=== PATIENT | female | born 1975 | race Caucasian/White ===

== ENCOUNTER 2017-04-29 16:03 | Observation (INO) ==
[2017-04-29] MEDS ORDERED: HYDROmorphone 2 MG/1 ML VIAL IV STA (17:46)
[2017-04-29] MEDS ORDERED: ONDANSETRON 4 MG/2 ML VIAL IV STA ×2 (17:47→19:36)
[2017-04-29] MEDS ORDERED: METOCLOPRAMIDE 10 MG/2 ML VIAL IV STA (17:47)
[2017-04-29] MEDS ORDERED: HYDROmorphone 2 MG/1 ML VIAL ONE (17:51)
[2017-04-29] MEDS ORDERED: METOCLOPRAMIDE 10 MG/2 ML VIAL ONE (17:51)
[2017-04-29] MEDS ORDERED: ONDANSETRON 4 MG/2 ML VIAL ONE ×2 (17:51→19:37)
--- NOTE | 2017-04-29 17:52 | Emergency Department Note ---
Arrival <JuneSimon W - Last Filed: 04/29/17 19:11> - Arrival ED Nursing Triage Note: pt ambulatory to triage with c/o having migraine headache with nausea/ vomiting. pt states onset thursday. pt states she has been here x 2 to ER since thursday. just left ed this am around 0400 and is not any better. Mode of Arrival: Ambulatory <John Hyman - Last Filed: 04/30/17 16:48> - Arrival Chief Complaint: Headache Stated Complaint: migrsines and vomiting Time Seen by Provider: 04/29/17 17:34 - History of Present Illness HPI Narrative: 41-year-old white female presents the ER with complaint of headache since Thursday morning. This is the patient's third visit to the ER with the same complaint in 24 hours. Patient has received Dilaudid, Zofran, and Reglan on a previous visit with relief. However, when she gets home the nausea and vomiting returns and she is unable to hold down p.o. medicine. She called Dr. Coughlin and he prescribed Phenergan suppository and p.o. Demerol. Patient reports she was unable to take Demerol due to nausea and vomiting. Patient reports the pain was right suborbital and at times occipital. She reports that the onset of pain she had a visual aura. (John Hyman) Allergies/Adverse Reactions: Allergies Allergy/AdvReac Type Severity Reaction Status Date / Time No Known Allergies Allergy Verified 04/29/17 16:13 Home Medications: Home Medications Medication Instructions Recorded Confirmed Type ALPRAZolam [Xanax] 0.25 mg PO BEDTIME 10/31/14 04/30/17 History Omeprazole [Prilosec] 20 mg PO BID 10/31/14 04/30/17 History Amitriptyline [Elavil] 30 mg PO DAILY 12/12/16 04/30/17 History Diclofenac Potassium Tab [Cataflam] 50 mg PO ONCE PRN 12/12/16 04/29/17 History Docusate Sodium [Colace] 200 mg PO DAILY 12/12/16 04/30/17 History Lysine 500 mg PO DAILY 12/12/16 04/30/17 History Metoclopramide Tab [Reglan Tab] 10 mg PO DAILY 12/12/16 04/30/17 History Metoprolol Succinate Xl [Toprol Xl] 50 mg PO BID 12/12/16 04/30/17 History Multivit-Min/FA/Lycopen/Lutein 1 each PO DAILY 12/12/16 04/30/17 History [Centrum Silver Tablet] [place]-3/Dha/Epa/Fish Oil [Fish Oil 3 each PO DAILY 12/12/16 04/30/17 History 1,000 mg Softgel] Rizatriptan Benzoate [Maxalt] 10 mg PO ONCE PRN 12/12/16 04/29/17 History Bethanechol Chloride [Urecholine] 50 mg PO DAILY 04/29/17 04/30/17 History Naratriptan HCl [Amerge] 2.5 mg PO DIRECTED PRN 04/29/17 04/30/17 History Review of System - Review of System 12 point system: reviewed and no additional remarkable complaints except as stated - Review of System Constitutional: Present: as per HPI <John Hyman - Last Filed: 04/30/17 16:48> Medical,Surgical,& Family Hx - Medical History Neurology: History of: Migraine No history of: Seizures HEENT: History of: HEENT Problems (sinuses) Endocrine: No history of: Thyroid Disorder Respiratory: History of: Bronchitis, Pneumonia (hospitalized one week ago with right lower lobe pneumonia and sinusitis.) Gastrointestinal: History of: GERD, GI Problems (gastroparesis) - Surgical History Thoracic Surgeries: Patient denies;: Organ Transplant, Lobectomy Neurologic Surgeries: Patient denies: Neurologic Surgery HEENT Surgeries: Surgical HX of: Tonsilectomy & Adenoidectomy (removed) Patient denies: Eye Surgery, Thyroid Surgery Abdominal Surgeries: Surgical HX of: Abdominal Surgery, Cholecystectomy Reproductive Surgeries: Surgical HX of;: Section Patient denies;: Genitourinary Surgery, Gynecologic Surgery - Family History Family History: Reports;: Family Diabetes (mom), Family Hypertension (mom and dad) - Social History Smoking Status: Never smoker Frequency of Alcohol Use: None Type of Drug Use: None <John Hyman - Last Filed: 04/30/17 16:48> Exam <Simon Watkins - Last Filed: 04/29/17 19:11> <John Hyman - Last Filed: 04/30/17 16:48> Physical Examination: - General General appearance: [alert, in no apparent distress] - Head Head exam: [atraumatic, normocephalic, normal inspection] - Eye Eye exam: [normal appearance, PERRL, EOMI] - ENT ENT exam: [normal exam, mucous membranes moist] - Neck Neck exam: [normal inspection, full ROM, trachea midline] - Chest Chest inspection: [normal inspection, symmetric chest wall rise] - Respiratory Respiratory exam: [normal lung sounds bilaterally, respirations even and unlabored] - Cardiovascular Cardiovascular exam: [regular rate, normal rhythm, normal heart sounds] - Abdominal Exam Abdominal exam: [soft without tenderness, normal bowel sounds] - Extremities Exam Extremities exam: [normal inspection, full ROM, normal capillary refill] - Back Exam Back exam: [normal inspection, full ROM] - Neurological Exam Neurological exam: [alert, oriented X3, CN II-XII intact, equal nca certified concierge strength bilaterally, negative pronator drift] - Skin Skin exam: [warm, dry, intact, normal color] (John Hyman) Vital Signs: Vital Signs Temperature 98.9 F 04/30/17 12:00 Pulse Rate 94 H 04/30/17 12:00 Respiratory Rate 18 04/30/17 12:00 Blood Pressure 144/85 04/30/17 12:00 O2 Sat by Pulse Oximetry 96 04/30/17 12:00 Course <Simon Watkins - Last Filed: 04/29/17 19:11> <John Hyman - Last Filed: 04/30/17 16:48> Course Narrative: 1745: Plan is to evaluate labs and consider admission for intractable vomiting and pain. 1800: Patient care was assumed by Dr. Watkins. (John Hyman) - Reevaluation(s) Reevaluation #1: Discussed with patient the fact that we will admit for intractable nausea and vomiting but she must follow-up with the migraine clinic in [place]. (Simon Watkins) - Consultations Consultation #1: Discussed with the hospitalist service who will admit for further evaluation treatment. (Simon Watkins) Results - Labs CBC & BMP: 04/29/17 17:52 04/29/17 17:52 - Diagnostic Findings Procedure: CT Abdomen and Pelvis: image reviewed by me, report reviewed by me ( Fatty liver otherwise unremarkable) <Simon Watkins - Last Filed: 04/29/17 19:11> - Labs CBC & BMP: 04/30/17 07:45 04/30/17 07:45 <John Hyman - Last Filed: 04/30/17 16:48> - Labs Labs: I reviewed the lab and noted the elevated white blood cell count and diffuse abnormalities of LFTs (Simon Watkins) Disposition Case discussed with: patient, patient's family Time of Disposition: 19:13 <Simon Watkins - Last Filed: 04/29/17 19:11> <John Hyman - Last Filed: 04/30/17 16:48> Clinical Impression: Intractable nausea and vomiting, Recurrent migraines Disposition: Still a Patient Condition: Stable
[2017-04-29] MEDS ORDERED: SODIUM CHLORIDE 0.9% 500 ML IV STA (18:06)
[2017-04-29] MEDS ORDERED: KETOROLAC 30 MG/1 ML VIAL ONE (18:12)
[2017-04-29 18:13] LABS: Basophils # 0.1 10*3/uL (0.0-0.2); Basophils % 0.3 % (0.0-0.8); Eosinophils % 0.1 % (0.00-10.9); Hematocrit 44.3 VOL% (35.7-47.0); Hemoglobin 15.5 GM/DL (12.0-16.0); Immature Granulocytes % 0.6 %; Immature Granulocytes Absolute 0.11 #; Lymphocytes # 2.4 10*3/uL (1.4-4.0); Mean Corpuscular Hemoglobin 32 PG (27-34); Mean Corpuscular Volume 92.3 FL (87-102); Mean Platelet Volume 9.3 FL (9.6-12.0); Monocytes % 5.6 % (1.7-12.7); Neutrophils # 14.7 10*3/uL (1.4-7.4); Neutrophils % 80.4 % (38.7-73.9); Platelet Count 388 T/CUMM (130-400); Red Cell Distribution Width 12.5 % (9.3-17.3); White Blood Count 18.3 T/CUMM (4-12)
[2017-04-29] MEDS ORDERED: KETOROLAC 30 MG/1 ML VIAL IV STA (18:14)
[2017-04-29 18:39] LABS: Albumin 4.7 G/DL (3.4-5.0); Bilirubin,Total 0.8 MG/DL (0.2-1.0); Calcium 10.2 MG/DL (8.5-10.1); Osmolality,Calculated 271.1 MOS/KG (273-304); Potassium 3.6 MMOL/L (3.5-5.1)
--- NOTE | 2017-04-29 19:04 | CT Report ---
CT of the abdomen and pelvis with intravenous contrast. No oral contrast was administered. Axial images were obtained with sagittal and coronal 2-D reconstructions. Indication: Intractable nausea. Comparison: Noncontrasted study from August 05, 1999 The left lung bases clear. Calcified lymph nodes are seen within the left inferior hilum. There are linear areas of atelectasis or scarring at the left lung base. There is elevation of the left hemidiaphragm. The liver is enlarged with a length of 22 cm. There is very severe fatty infiltration of the liver. The gallbladder has been removed. No focal liver lesions are identified. There is no intrahepatic biliary ductal dilatation. The spleen size is normal. The spleen contains multiple granulomas. No adrenal enlargement. The pancreas presents a normal appearance. The abdominal aorta is of normal caliber. There is a 5 mm cyst at the midpole of the right kidney. The urinary bladder presents a normal appearance. The uterus presents a normal appearance. There is a 1.2 cm cyst on the left ovary. The gastric contour is grossly normal. The loops of small intestine are not dilated. No small intestinal wall thickening. The terminal ileum and appendix present a normal appearance. The colon is not dilated. There is no colonic wall thickening. No free air or free fluid is present within the peritoneal cavity. Osseous structures are unremarkable. Impression: 1. Atelectasis at the right lung base with scarring. Interval worsening compared to a chest CT from March 03, 2017. 2. Enlarged severely fatty liver. The CT exam was performed using one or more of the following dose reduction techniques: Automated exposure control, adjustment of the mA and/or kV according to patient size, or use of iterative reconstruction technique. PROCEDURE INTERPRETED AT [facility] DEPARTMENT OF RADIOLOGY Final Report Signed by: Dr. Sierra Smith
--- NOTE | 2017-04-29 19:40 | Hospitalist History & Physical ---
<Sabine Lopez - Last Filed: 04/29/17 19:58> Assessment and Plan - Time spent with patient Time spent with patient: Greater than 30 minutes (1) Migraine Status: Acute Assessment and plan: Neurologically intact Pain and nausea medications as needed Neurology consultation Sleep center consultation Current Visit: No (2) Elevated liver enzymes Status: Acute Assessment and plan: CT abd showed fatty liver Pending lab work Current Visit: Yes (3) Hyperglycemia Status: Acute Assessment and plan: Glucose 158 Hbg A1c 7.1 SSI with accuchecks 1800 shalonda ADA Current Visit: Yes (4) Hypertension Status: Acute Assessment and plan: Continue home medications Current Visit: Yes History of Present Illness History of present illness: Called to the ER for Ms. Perez who is a 41 year old female that presents tonight with an intractable migraine. Patient has been seen here three times and has received various medications and discharged home. The headache started on Thursday morning approximately 3AM. The pain woke her up from sleep. She has continued to have multiple episodes of nausea and vomiting. A CT head was performed yesterday and was negative. She has experienced an aura that includes nausea, ptosis, visual changes, and pain behind the affected eye. She has a history of migraines and sees a migraine clinic in [place] but has not reached out to them. She has a migraine plan with medications and has implemented it but has not received any relief. She states the most relief she has gotten was with the combination of Dilaudid, Reglan, Zofran, Imitrex, and Toradol PRN. She was concerned about the Dilaudid making her more nauseated due to she is narcotic naive. A CT of abd was performed which revealed a fatty liver. Her LFT' s are elevated but she denies any abdominal pain or change in stools. WBC increased from 13 to 18. She denies any chest pain, shortness of breath, palpitations, dizziness, coughing, melena, hematemsis, fatty or foul smelling stools, dysuria, or fevers. Additional history includes HTN, gastroparesis, renal calculi, hemorroidectomy, , cholecystectomy, and tonsillectomy. Her PCP is Dr. Coughlin. She will be admitted under hospital medicine service, pain and nausea medications PRN, blood cultures pending, repeat lab work, neurology consultation, and sleep center consultation. A CT of sinuses are pending. Home medications were reconciled as appropriate. Patient is a full code. Home Medications Medication Instructions Recorded Confirmed Type ALPRAZolam [Xanax] 0.25 mg PO BEDTIME 10/31/14 04/30/17 History Omeprazole [Prilosec] 20 mg PO BID 10/31/14 04/30/17 History Amitriptyline [Elavil] 30 mg PO DAILY 12/12/16 04/30/17 History Diclofenac Potassium Tab [Cataflam] 50 mg PO ONCE PRN 12/12/16 04/29/17 History Docusate Sodium [Colace] 200 mg PO DAILY 12/12/16 04/30/17 History Lysine 500 mg PO DAILY 12/12/16 04/30/17 History Metoclopramide Tab [Reglan Tab] 10 mg PO DAILY 12/12/16 04/30/17 History Metoprolol Succinate Xl [Toprol Xl] 50 mg PO BID 12/12/16 04/30/17 History Multivit-Min/FA/Lycopen/Lutein 1 each PO DAILY 12/12/16 04/30/17 History [Centrum Silver Tablet] [place]-3/Dha/Epa/Fish Oil [Fish Oil 3 each PO DAILY 12/12/16 04/30/17 History 1,000 mg Softgel] Rizatriptan Benzoate [Maxalt] 10 mg PO ONCE PRN 12/12/16 04/29/17 History Bethanechol Chloride [Urecholine] 50 mg PO DAILY 04/29/17 04/30/17 History Naratriptan HCl [Amerge] 2.5 mg PO DIRECTED PRN 04/29/17 04/30/17 History Allergies Allergy/AdvReac Type Severity Reaction Status Date / Time No Known Allergies Allergy Verified 04/29/17 16:13 Medical,Surgical,& Family Hx - Medical History Cardio: History of: Hypertension No history of: CHF, CAD, VA Psychological: History of: Anxiety Disorders No history of: Behavior Problems, Bipolar Disorder, Psychiatric/Substance Abuse Tx Neurology: No history of: Cerebrovascular Accident, TIA Genitourinary: History of: Kidney Stones Gastrointestinal: History of: GI Problems Musculoskeletal: No history of: Musculoskeletal Problems Hematology: No history of: Blood Disorders - Surgical History HEENT Surgeries: Surgical HX of: Tonsilectomy & Adenoidectomy - Family History Family History: Reports;: Family Cancer (paternal grandmother, maternal grandmother), Family Diabetes (mom, maternal grandparents, paternal grandmother) , Family Heart Disease (maternal grandmother, paternal grandfather), Family Hypertension - Social History Marital Status: Lives With:: Spouse - Constitutional Constitutional: Present: anorexia, fatigue, weakness. Absent: chills, lethargy , night sweats - EENT Eyes: Present: other (ptosis, pain behind affected eye) Nose, mouth and throat: Present: headache(s). Absent: sinus pressure, vertigo - Cardiovascular Cardiovascular: Absent: chest pain at rest, chest pain with activity, dyspnea, edema, orthopnea, palpitations - Respiratory Respiratory: Absent: cough, dyspnea - Gastrointestinal Gastrointestinal: Absent: change in bowel habits, diarrhea - Genitourinary Genitourinary: Absent: difficulty urinating, dysuria, flank pain - Musculoskeletal Musculoskeletal: Absent: muscle weakness - Psychiatric Psychiatric: Present: anxiety. Absent: depression - Endocrine Endocrine: Absent: cold intolerance, heat intolerance - Hematologic/Lymphatic Hematologic/Lymphatic: Absent: easy bleeding, easy bruising Exam - Constitutional Vitals: Period Temp Pulse Resp BP Sys/Mahmood Pulse Ox Last 24 Hr 98.9 F-98.9 F 98-114 17-20 134-146/82-92 95-98 - Skin Skin exam: Present: dry, intact Results - Labs CBC & BMP: 04/29/17 17:52 04/29/17 17:52 <White,Halie R - Last Filed: 04/30/17 17:08> Assessment and Plan (1) Migraine Status: Acute Assessment and plan: demerol, thorazine, toradol, phenergan, consult Dr Duggan, screen for sleep apnea Current Visit: No (2) Hyperglycemia Status: Acute Assessment and plan: hgb A1c Current Visit: Yes (3) Hypertension Status: Acute Assessment and plan: cont metoprolol Current Visit: Yes (4) Gastroparesis Problem details: Patient reports clinical improvement of using Reglan and Urecholine combination treatment for the past 2-3 years. Patient is convinced that her pharyngeal irritation is related to GERD and early ulcer formation. She is reminded of anti-reflux diet and behavior precautions. Add PPI therapy. Status: Chronic Assessment and plan: hold reglan Current Visit: No (5) Elevated liver enzymes Status: Acute Assessment and plan: check ammonia level, has fatty liver, repeat liver profile in am, lipids in am, needs to lose weight Current Visit: Yes History of Present Illness Chief complaint: Intractable Migraine History of present illness: Ms. Perez is a 41 year old female hypertension obesity gastroparesis and chronic migraines who sees a migraine clinic in [place]. Reports beginning yesterday she had an intractable migraine with associated nausea and vomiting affecting the right side just over her eye. She is sensitive to light and sound. She has been to the ER 3 times now for help in aborting this migraine. She will receive injections that will get better and then it returns. She has not notified the headache clinic in [place] that she is currently having problems. I have asked her to contact them first thing in the morning. She will be monitored overnight and have Dr. Duggan see her. Medical,Surgical,& Family Hx - Medical History Neurology: History of: Migraine No history of: Seizures HEENT: History of: HEENT Problems (sinuses) Endocrine: No history of: Thyroid Disorder Respiratory: History of: Bronchitis, Pneumonia (hospitalized one week ago with right lower lobe pneumonia and sinusitis.) Gastrointestinal: History of: GERD, GI Problems (gastroparesis) - Surgical History Thoracic Surgeries: Patient denies;: Organ Transplant, Lobectomy Neurologic Surgeries: Patient denies: Neurologic Surgery HEENT Surgeries: Surgical HX of: Tonsilectomy & Adenoidectomy (removed) Patient denies: Eye Surgery, Thyroid Surgery Abdominal Surgeries: Surgical HX of: Abdominal Surgery, Cholecystectomy Reproductive Surgeries: Surgical HX of;: Section Patient denies;: Genitourinary Surgery, Gynecologic Surgery - Family History Family History: Reports;: Family Diabetes (mom), Family Hypertension (mom and dad) - Social History Smoking Status: Never smoker Frequency of Alcohol Use: None Type of Drug Use: None Marital Status: Single Lives With:: Alone Functional capacity: independent ambulation - Constitutional Constitutional: Present: headache(s). Absent: fever(s) - EENT Eyes: Absent: blurry vision, loss of vision Ears: Absent: decreased hearing, ear discharge - Gastrointestinal Gastrointestinal: Present: nausea, vomiting. Absent: abdominal pain - Neurological Neurological: Present: headache(s). Absent: dizziness, focal weakness - Psychiatric Psychiatric: Absent: confusion Exam - Constitutional Vitals: Period Temp Pulse Resp BP Sys/Mahmood Pulse Ox Last 24 Hr 98.9 F-98.9 F 98-110 17-20 134-146/82-92 96-98 General appearance: no acute distress, over weight - Head Head exam: Present: normal inspection, normocephalic - Eye Eye exam: Present: EOMI. Absent: conjunctival injection Pupils: Present: DILLON, normal accommodation - Neck Neck exam: Absent: lymphadenopathy, thyromegaly - Respiratory Respiratory exam: Present: clear to auscultation bilaterally. Absent: rhonchi, wheezes - Cardiovascular Cardiovascular exam: Present: regular rate and rhythm. Absent: systolic murmur - GI/Abdominal GI/Abdominal exam: Present: normal bowel sounds, soft. Absent: tenderness - Extremities Exam Extremities exam: Present: normal inspection, normal capillary refill - Neurological Exam Neurological exam: Present: alert, oriented X3, CN II-XII intact, reflexes normal. Absent: motor sensory deficit - Psychiatric Psychiatric exam: Present: normal affect, normal mood - Skin Skin exam: Present: normal color, warm Results - Labs CBC & BMP: 04/30/17 07:45 04/30/17 07:45 Lab Results: I have reviewed the past 24 hour labs - Diagnostic Findings Procedure: CT Abdomen and Pelvis: report reviewed by me (Fatty liver disease)
[2017-04-29] MEDS ORDERED: chlorproMAZINE 25 MG/1 ML AMP IM PRN (20:32)
[2017-04-29] MEDS ORDERED: MEPERIDINE 25 MG/1 ML VIAL IV PRN (20:32)
[2017-04-29] MEDS ORDERED: ONDANSETRON 4 MG/2 ML VIAL IV PRN (20:32)
[2017-04-29] MEDS ORDERED: ACETAMINOPHEN 325 MG TABLET PO PRN (20:32)
[2017-04-29] MEDS ORDERED: GLUCAGON 1 MG VIAL IM PRN (20:32)
[2017-04-29] MEDS ORDERED: DEXTROSE 50% 25 GM/50 ML VIAL IV PRN (20:32)
[2017-04-29] MEDS ORDERED: PROMETHAZINE 25 MG/1 ML VIAL IM PRN (20:32)
[2017-04-29] MEDS ORDERED: LABETALOL 20 MG/4 ML SYRINGE IV PRN (20:32)
--- NOTE | 2017-04-29 20:47 | XRay Report ---
History short of breath Comparison 04/14/2011 The heart is normal in size. The lungs are clear. Impression: No acute pathology seen. PROCEDURE INTERPRETED AT [facility] DEPARTMENT OF RADIOLOGY Final Report Signed by: Dr. Laura Smith
[2017-04-29] MEDS: SODIUM CHLORIDE 0.45% 1,000 ML IV SCH (21:57)
[2017-04-29] MEDS: FAMOTIDINE 20 MG/2 ML VIAL IV SCH (22:02)
[2017-04-29] MEDS: ALPRAZolam 0.25 MG TABLET PO SCH (22:06)
[2017-04-29] MEDS: METOPROLOL SUCCINATE XL 50 MG TABLET PO SCH (22:06)
[2017-04-29] MEDS: KETOROLAC 30 MG/1 ML VIAL IV SCH (22:18)
[2017-04-29 22:47] LABS: Hepatitis A Ab IgM Quant 0.12 Index; Hepatitis A Ab IgM Result Negative (Negative); Hepatitis B Core IgM Quant 0.13 Index; Hepatitis B Core IgM Result Negative (Negative); Hepatitis B Surface Ag Quant < 0.10 Index; Hepatitis B Surface Ag Result Negative (Negative); Hepatitis C Virus Ab Quant 0.08 Index; Hepatitis C Virus Ab Result Negative (Negative)
[2017-04-30] MEDS: INSULIN LISPRO 100 UNIT/ML SUBCUT SCH ×4 (01:50→18:37)
[2017-04-30] MEDS: KETOROLAC 30 MG/1 ML VIAL IV SCH ×4 (04:08→22:06)
[2017-04-30] MEDS: SODIUM CHLORIDE 0.45% 1,000 ML IV SCH (05:40)
--- NOTE | 2017-04-30 07:00 | CT Report ---
History is headache Axial images obtained with coronal reconstruction images also stored and interpreted No paranasal sinus air-fluid levels or mucosal thickening seen. Nasal septum is near midline no with a moderate jace bullosa on the left. Both maxillary sinus ostia are patent with large air cells lateral to the ostia bilaterally Impression: Developmental findings without acute paranasal sinus disease seen The CT exam was performed using one or more of the following dose reduction techniques: Automated exposure control, adjustment of the mA and/or kV according to patient size, or use of iterative reconstruction technique. PROCEDURE INTERPRETED AT [facility] DEPARTMENT OF RADIOLOGY Final Report Signed by: Dr. Laura Smith
[2017-04-30 08:15] LABS: Apearance,Urine CLOUDY (Clear); Bacteria,Urine Occasional /HPF (Few); Bilirubin,Urine Negative (Negative); Blood, Urine Negative (Negative); Glucose,Urine (UA) Negative (Negative); Ketones,Urine Negative (Negative); Mucus,Urine Many /LPF (Occasional); Nitrite,Urine Negative (Negative); Protein,Urine 30 MG/DL; RBC,Urine 2 /HPF (0-4); Squamous Epithelial Cell,Urine Occasional /HPF (0-10); Urine Color Yellow (Yellow); Urine Specific Gravity 1.039 (1.001-1.035); WBC,Urine 2 /HPF (0-6)
[2017-04-30 08:31] LABS: Basophils # 0.1 10*3/uL (0.0-0.2); Basophils % 0.4 % (0.0-0.8); Eosinophils # 0.1 10*3/uL (0.0-0.87); Eosinophils % 0.8 % (0.00-10.9); Hematocrit 40.5 VOL% (35.7-47.0); Immature Granulocytes % 0.3 %; Immature Granulocytes Absolute 0.04 #; Lymphocytes # 3.4 10*3/uL (1.4-4.0); Lymphocytes % 28.9 % (21.3-54.2); Mean Corpuscular HGB Conc 34.6 GM/DL (32-36); Mean Corpuscular Hemoglobin 32 PG (27-34); Mean Corpuscular Volume 93.5 FL (87-102); Mean Platelet Volume 9.7 FL (9.6-12.0); Monocytes # 0.9 10*3/uL (0.11-0.8); Monocytes % 7.2 % (1.7-12.7); Neutrophils # 7.4 10*3/uL (1.4-7.4); Neutrophils % 62.4 % (38.7-73.9); Platelet Count 328 T/CUMM (130-400); Red Blood Count 4.33 MC/CUMM (3.8-5.5); Red Cell Distribution Width 12.5 % (9.3-17.3); White Blood Count 11.8 T/CUMM (4-12)
[2017-04-30 08:53] LABS: Bilirubin,Direct 0.2 MG/DL (0.0-0.20); Bilirubin,Indirect 0.4 MG/DL (0.0-1.0); Bilirubin,Total 0.6 MG/DL (0.2-1.0); Osmolality,Calculated 276.7 MOS/KG (273-304); Potassium 3.8 MMOL/L (3.5-5.1)
[2017-04-30] MEDS: FAMOTIDINE 20 MG/2 ML VIAL IV SCH ×2 (09:30→22:06)
[2017-04-30] MEDS: AMITRIPTYLINE 10 MG TABLET PO SCH (09:35)
[2017-04-30] MEDS: METOPROLOL SUCCINATE XL 50 MG TABLET PO SCH ×2 (09:36→22:06)
[2017-04-30] MEDS ORDERED: PROMETHAZINE 25 MG TABLET PO PRN (11:29)
--- NOTE | 2017-04-30 12:20 | Sleep Medicine Consult ---
Assessment and Plan (1) Unspecified sleep apnea Status: Acute Assessment and plan: Her symptoms are concerning for sleep apnea, particularly with regard to her comorbidities. Sleep evaluation is indicated and we will set her up for outpatient polysomnography. Thank you for this consult and the opportunity to participate in her care. Current Visit: Yes (2) Hypertension Status: Acute Assessment and plan: The prevalence rate for obstructive sleep apnea patients with hypertension is 35 %. That rate can be as high as 80% in patients who require 4 or more medications for blood pressure control. Current Visit: Yes (3) Hyperglycemia Status: Acute Current Visit: Yes History of Present Illness Chief complaint: Sleep apnea History of present illness: Ms. Perez is a 41 year old female admitted with migraine headaches that awoke her from sleep. During her evaluation, there was concern for sleep apnea. She does have a history of a recurrent problem with headaches awakening her from sleep. This occasion, she has had a few days of nausea and vomiting associated with this. She has been found to have an elevated glucose and abnormal liver function studies with concern for fatty liver. She does snore loudly and her sleeps in a different bedroom because of the loudness of her snoring. He has never witnessed her to stop breathing during her sleep. She is not aware of awakening from sleep short of breath. She will awaken once a night to urinate. She denies any significant sleepiness during the day. She does have a family history of obstructive sleep apnea in both her mother and father. She does have hypertension. Home Medications Medication Instructions Recorded Confirmed Type ALPRAZolam [Xanax] 0.25 mg PO BEDTIME 10/31/14 04/30/17 History Omeprazole [Prilosec] 20 mg PO BID 10/31/14 04/30/17 History Amitriptyline [Elavil] 30 mg PO DAILY 12/12/16 04/30/17 History Diclofenac Potassium Tab [Cataflam] 50 mg PO ONCE PRN 12/12/16 04/29/17 History Docusate Sodium [Colace] 200 mg PO DAILY 12/12/16 04/30/17 History Lysine 500 mg PO DAILY 12/12/16 04/30/17 History Metoclopramide Tab [Reglan Tab] 10 mg PO DAILY 12/12/16 04/30/17 History Metoprolol Succinate Xl [Toprol Xl] 50 mg PO BID 12/12/16 04/30/17 History Multivit-Min/FA/Lycopen/Lutein 1 each PO DAILY 12/12/16 04/30/17 History [Centrum Silver Tablet] Mora-3/Dha/Epa/Fish Oil [Fish Oil 3 each PO DAILY 12/12/16 04/30/17 History 1,000 mg Softgel] Rizatriptan Benzoate [Maxalt] 10 mg PO ONCE PRN 12/12/16 04/29/17 History Bethanechol Chloride [Urecholine] 50 mg PO DAILY 04/29/17 04/30/17 History Naratriptan HCl [Amerge] 2.5 mg PO DIRECTED PRN 04/29/17 04/30/17 History Allergies Allergy/AdvReac Type Severity Reaction Status Date / Time No Known Allergies Allergy Verified 04/29/17 16:13 Review of systems: Otherwise unremarkable from a sleep medicine standpoint. Exam (Pulmonay) H&P - Constitutional Vitals: Period Temp Pulse Resp BP Sys/Mahmood Pulse Ox Last 24 Hr 97.4 F-99.8 F 91-122 17-20 114-146/58-92 90-98 Exam: She is alert and responsive in no acute distress. Pupils equal round reactive to light and accommodation. Extraocular movements intact. Oropharynx with a class III Mallampati exam. Neck is supple without adenopathy or thyromegaly. No supraclavicular adenopathy is noted. Chest with symmetrical breath sounds without focal wheeze, rhonchi, or rales. Cardiac exam reveals a regular rhythm without murmur or gallop. Abdomen soft nontender without palpable hepatosplenomegaly or mass. Extremities are without clubbing, cyanosis, or edema. Neurologically, she is grossly intact. She moves all extremities with good strength and ambulates with a normal gait. Medical,Surgical,& Family Hx - Medical History Cardio: History of: Hypertension No history of: CHF, CAD, [place] Psychological: History of: Anxiety Disorders No history of: Behavior Problems, Bipolar Disorder, Psychiatric/Substance Abuse Tx Neurology: History of: Migraine No history of: Cerebrovascular Accident, Seizures, TIA HEENT: History of: Eye Problem (NEAR SIGHTED), HEENT Problems (sinuses) No history of: Ear Problem, Dental Problems, Glaucoma, Oral Cancer Endocrine: No history of: Thyroid Disorder Respiratory: History of: Bronchitis, Pneumonia (hospitalized one week ago with right lower lobe pneumonia and sinusitis.) Genitourinary: History of: Kidney Stones No history of: Recurring Urinary Tract Infections Gastrointestinal: History of: GERD, GI Problems Musculoskeletal: No history of: Musculoskeletal Problems Hematology: No history of: Blood Disorders - Surgical History Thoracic Surgeries: Patient denies;: Kidney (Renal Surgery), Lithotripsy, Nephrectomy, Organ Transplant, Lobectomy Neurologic Surgeries: Patient denies: Neurologic Surgery HEENT Surgeries: Surgical HX of: Tonsilectomy & Adenoidectomy Patient denies: Eye Surgery, Thyroid Surgery Abdominal Surgeries: Surgical HX of: Abdominal Surgery, Cholecystectomy, EGD ( REFLUX) Patient denies: Appendectomy, Colonoscopy, Gastric Bypass Surgery, Hernia Repair Reproductive Surgeries: Surgical HX of;: Section Patient denies;: Cystoscopy, Genitourinary Surgery, Gynecologic Surgery, Tubal Ligation - Family History Family History: Reports;: Family Cancer (paternal grandmother, maternal grandmother), Family Diabetes (mom, maternal grandparents, paternal grandmother) , Family Heart Disease (maternal grandmother, paternal grandfather), Family Hypertension (MOM,DAD), Additional Family History (SISTER (HIGH CHOLESTEROL)) Denies;: Family Anesthesia Reaction, Family Hematology, Family Psychiatric Problems - Social History Smoking Status: Never smoker Frequency of Alcohol Use: None Type of Drug Use: None Results - Labs CBC & BMP: 04/30/17 07:45 04/30/17 07:45 Lab Results: I have reviewed the past 24 hour labs Labs: Hemoglobin A1c elevated and consistent with diabetes, type II
--- NOTE | 2017-04-30 12:29 | Hospitalist Progress Note ---
Assessment and Plan (1) Migraine headache Status: Acute Assessment and plan: CT of her sinuses showed Developmental findings without acute paranasal sinus disease seen. Improving on meds. Neuro is yet to see. Plan Continue current care, add phenergan prn for nausea Current Visit: No (2) Hypertension Status: Acute Assessment and plan: stable on meds Current Visit: Yes (3) Elevated liver enzymes Status: Acute Assessment and plan: Hepatitis panel- negative. CT showed Enlarged severely fatty liver. Plan GI consult. Avoid hepatotoxics Lipid profile Current Visit: Yes (4) Hyperglycemia Status: Acute Assessment and plan: [id number]. Continue current regime. Will get DM teaching Current Visit: Yes (5) Gastroparesis Problem details: Patient reports clinical improvement of using Reglan and Urecholine combination treatment for the past 2-3 years. Patient is convinced that her pharyngeal irritation is related to GERD and early ulcer formation. She is reminded of anti-reflux diet and behavior precautions. Add PPI therapy. Status: Chronic Assessment and plan: continue current regime, GI to see Current Visit: No (6) Unspecified sleep apnea Status: Acute Assessment and plan: Sleep MD is following Current Visit: Yes Hospitalist: Subjective Interval history: Patient was seen sitting up on a chair. Her headache is better but still nauseated. Exam - Constitutional Vitals: Period Temp Pulse Resp BP Sys/Mahmood Pulse Ox Last 24 Hr 97.4 F-99.8 F 91-122 17-20 114-146/58-92 90-98 General appearance: no acute distress - Head Head exam: Present: normal inspection - Eye Eye exam: Present: EOMI - Respiratory Respiratory exam: Present: clear to auscultation bilaterally - GI/Abdominal GI/Abdominal exam: Present: normal bowel sounds - Extremities Exam Extremities exam: Present: normal inspection - Neurological Exam Neurological exam: Present: alert, oriented X3 Results - Labs CBC & BMP: 04/30/17 07:45 04/30/17 07:45 Lab Results: I have reviewed the past 24 hour labs
--- NOTE | 2017-04-30 13:33 | Gastrointestinal Consult Note ---
Assessment and Plan (1) Elevated liver enzymes Status: Acute Assessment and plan: 04/30-admitted with intractable migraine with nausea and vomiting, history of gastroparesis with findings of elevated transaminases as well as CT findings of severe fatty liver infiltration. Hepatitis panel negative. lipid panel pending for tomorrow morning. Plan an addendum to follow by Dr. Colbert. Current Visit: Yes History of Present Illness Chief complaint: Elevated LFTs, fatty liver History of present illness: Ms. Perez is a 41 year old female who was admitted to the hospital with complaint of migraine headache since Thursday. Patient states that she was in her usual state of health until she awoke Thursday to go to work. She woke up with what she recalls being a severe migraine with onset of nausea and vomiting. Patient states that she did go to work that day and had continued episodes of nausea vomiting throughout the day with minimal relief from her migraine medications. She presented to the emergency room that night and was given pain medication as well as antiemetics and sent home. She returned again earlier that morning and her symptoms are not any better. At that time she was admitted for further workup. Patient has a history of migraines and is followed by the headache center in [place]. She states that she is typically able to control her migraines and does not often have intractable nausea and vomiting such as this. She does state that she continues to have episodes of nausea vomiting however they occur shortly after onset of the headache pain. Patient is noted to have history of gastroparesis and was diagnosed several years ago following gastric emptying scan. She takes Reglan on a regular basis and usually controls her symptoms. She states she rarely vomits with her gastroparesis. Patient also has a strong family history of diabetes in both parents and states she was not aware of being diabetic prior to now. On admission, she was found to have an elevated hemoglobin A1c at 7.1. She was also noted to have elevated transaminases with AST 61 and ALT 157. She does not recall having elevated LFTs in the past. She will did have elevated WBCs on admission however she was IV hydrated and these are now normal limits. Hepatitis panel is negative. CT of abdomen on yesterday with IV contrast noted to show severe fatty infiltration of the liver. She is post cholecystectomy several years ago with no ductal dilatation noted. No pancreatic changes noted. Lipid panel is pending for the morning. Patient does state she has some irritation in her throat and does have history of GERD. She takes Prilosec for this daily. She is noted to have chronic sinus problems as well. Denies any recent weight loss prior to this episode. Denies any alcohol or tobacco use. Prior endoscopy done by Dr. Alanis. Home Medications Medication Instructions Recorded Confirmed Type ALPRAZolam [Xanax] 0.25 mg PO BEDTIME 10/31/14 04/30/17 History Omeprazole [Prilosec] 20 mg PO BID 10/31/14 04/30/17 History Amitriptyline [Elavil] 30 mg PO DAILY 12/12/16 04/30/17 History Diclofenac Potassium Tab [Cataflam] 50 mg PO ONCE PRN 12/12/16 04/29/17 History Docusate Sodium [Colace] 200 mg PO DAILY 12/12/16 04/30/17 History Lysine 500 mg PO DAILY 12/12/16 04/30/17 History Metoclopramide Tab [Reglan Tab] 10 mg PO DAILY 12/12/16 04/30/17 History Metoprolol Succinate Xl [Toprol Xl] 50 mg PO BID 12/12/16 04/30/17 History Multivit-Min/FA/Lycopen/Lutein 1 each PO DAILY 12/12/16 04/30/17 History [Centrum Silver Tablet] [place]-3/Dha/Epa/Fish Oil [Fish Oil 3 each PO DAILY 12/12/16 04/30/17 History 1,000 mg Softgel] Rizatriptan Benzoate [Maxalt] 10 mg PO ONCE PRN 12/12/16 04/29/17 History Bethanechol Chloride [Urecholine] 50 mg PO DAILY 04/29/17 04/30/17 History Naratriptan HCl [Amerge] 2.5 mg PO DIRECTED PRN 04/29/17 04/30/17 History Allergies Allergy/AdvReac Type Severity Reaction Status Date / Time No Known Allergies Allergy Verified 04/29/17 16:13 Medical,Surgical,& Family Hx - Medical History Cardio: History of: Hypertension No history of: CHF, CAD, [place] Psychological: History of: Anxiety Disorders No history of: Behavior Problems, Bipolar Disorder, Psychiatric/Substance Abuse Tx Neurology: History of: Migraine No history of: Cerebrovascular Accident, Seizures, TIA HEENT: History of: Eye Problem (NEAR SIGHTED), HEENT Problems (sinuses) No history of: Ear Problem, Dental Problems, Glaucoma, Oral Cancer Endocrine: No history of: Thyroid Disorder Respiratory: History of: Bronchitis, Pneumonia (hospitalized one week ago with right lower lobe pneumonia and sinusitis.) Genitourinary: History of: Kidney Stones No history of: Recurring Urinary Tract Infections Gastrointestinal: History of: GERD, GI Problems Musculoskeletal: No history of: Musculoskeletal Problems Hematology: No history of: Blood Disorders - Surgical History Thoracic Surgeries: Patient denies;: Kidney (Renal Surgery), Lithotripsy, Nephrectomy, Organ Transplant, Lobectomy Neurologic Surgeries: Patient denies: Neurologic Surgery HEENT Surgeries: Surgical HX of: Tonsilectomy & Adenoidectomy Patient denies: Eye Surgery, Thyroid Surgery Abdominal Surgeries: Surgical HX of: Abdominal Surgery, Cholecystectomy, EGD ( REFLUX) Patient denies: Appendectomy, Colonoscopy, Gastric Bypass Surgery, Hernia Repair Reproductive Surgeries: Surgical HX of;: Section Patient denies;: Cystoscopy, Genitourinary Surgery, Gynecologic Surgery, Tubal Ligation - Family History Family History: Reports;: Family Cancer (paternal grandmother, maternal grandmother), Family Diabetes (mom, maternal grandparents, paternal grandmother) , Family Heart Disease (maternal grandmother, paternal grandfather), Family Hypertension (MOM,DAD), Additional Family History (SISTER (HIGH CHOLESTEROL)) Denies;: Family Anesthesia Reaction, Family Hematology, Family Psychiatric Problems - Social History Smoking Status: Never smoker Frequency of Alcohol Use: None Type of Drug Use: None 12 point system: reviewed and no additional remarkable complaints except as stated - Constitutional Constitutional: Present: as per HPI - EENT Eyes: Present: as per HPI Ears: Present: as per HPI Nose, mouth and throat: Present: as per HPI - Cardiovascular Cardiovascular: Present: as per HPI - Respiratory Respiratory: Present: as per HPI - Gastrointestinal Gastrointestinal: Present: as per HPI, constipation, heartburn, nausea, vomiting - Genitourinary Genitourinary: Present: as per HPI - Musculoskeletal Musculoskeletal: Present: as per HPI - Neurological Neurological: Present: as per HPI, headache(s) - Psychiatric Psychiatric: Present: as per HPI - Endocrine Endocrine: Present: as per HPI - Hematologic/Lymphatic Hematologic/Lymphatic: Present: as per HPI Exam - Constitutional Vitals: Period Temp Pulse Resp BP Sys/Mahmood Pulse Ox Last 24 Hr 97.4 F-99.8 F 91-122 17-20 114-146/58-92 90-98 General appearance: no acute distress, over weight - Head Head exam: Present: normal inspection, normocephalic - Eye Eye exam: Present: other (Lids and conjunctivae are unremarkable). Absent: scleral icterus - ENT ENT exam: Present: normal exam, normal oropharynx - Neck Neck exam: Present: normal inspection - Respiratory Respiratory exam: Present: clear to auscultation bilaterally. Absent: rales, rhonchi, wheezes - Cardiovascular Cardiovascular exam: Present: regular rate and rhythm. Absent: diastolic murmur , JVD, systolic murmur - GI/Abdominal GI/Abdominal exam: Present: normal bowel sounds, soft. Absent: ascites, distended, mass, organomegaly, tenderness - Extremities Exam Extremities exam: Present: normal inspection, full ROM - Back Exam Back exam: Present: normal inspection - Neurological Exam Neurological exam: Present: alert, oriented X3 - Psychiatric Psychiatric exam: Present: normal affect, normal mood - Skin Skin exam: Present: normal color, warm, dry Results - Labs CBC & BMP: 04/30/17 07:45 04/30/17 07:45 Lab Results: I have reviewed the past 24 hour labs
[2017-04-30] MEDS: ALPRAZolam 0.25 MG TABLET PO SCH (22:06)
[2017-05-01] MEDS: SODIUM CHLORIDE 0.45% 1,000 ML IV SCH ×3 (00:15→09:18)
[2017-05-01] MEDS ORDERED: SODIUM CHLORIDE 0.9% 250 ML IV ONE (00:52)
[2017-05-01] MEDS: INSULIN LISPRO 100 UNIT/ML SUBCUT SCH ×4 (01:27→13:56)
[2017-05-01] MEDS: KETOROLAC 30 MG/1 ML VIAL IV SCH ×2 (02:04→10:19)
[2017-05-01 06:47] LABS: Basophils # 0.1 10*3/uL (0.0-0.2); Basophils % 0.6 % (0.0-0.8); Eosinophils # 0.1 10*3/uL (0.0-0.87); Eosinophils % 1.3 % (0.00-10.9); Hematocrit 35.2 VOL% (35.7-47.0); Hemoglobin 11.8 GM/DL (12.0-16.0); Immature Granulocytes % 0.3 %; Immature Granulocytes Absolute 0.03 #; Lymphocytes # 3.7 10*3/uL (1.4-4.0); Lymphocytes % 39.9 % (21.3-54.2); Mean Corpuscular HGB Conc 33.5 GM/DL (32-36); Mean Corpuscular Hemoglobin 32 PG (27-34); Mean Corpuscular Volume 94.9 FL (87-102); Mean Platelet Volume 9.7 FL (9.6-12.0); Monocytes # 0.8 10*3/uL (0.11-0.8); Monocytes % 8.7 % (1.7-12.7); Neutrophils # 4.6 10*3/uL (1.4-7.4); Neutrophils % 49.2 % (38.7-73.9); Platelet Count 279 T/CUMM (130-400); Red Blood Count 3.71 MC/CUMM (3.8-5.5); Red Cell Distribution Width 12.4 % (9.3-17.3); White Blood Count 9.4 T/CUMM (4-12)
[2017-05-01 07:10] LABS: Albumin 3.4 G/DL (3.4-5.0); Bilirubin,Total 0.5 MG/DL (0.2-1.0); Calcium 8.4 MG/DL (8.5-10.1); Osmolality,Calculated 279.4 MOS/KG (273-304); Potassium 3.6 MMOL/L (3.5-5.1); Total Protein 6.1 G/DL (6.4-8.3)
[2017-05-01 07:11] LABS: Risk Ratio 5.17; VLDL CHOLESTEROL 31.4 MG/DL
[2017-05-01 07:21] LABS: Calcium 8.4 MG/DL (8.5-10.1); Osmolality,Calculated 279.4 MOS/KG (273-304); Potassium 3.5 MMOL/L (3.5-5.1)
[2017-05-01 07:27] LABS: % Iron Saturation 43.4 % (18-50); Ferritin 338.2 ng/ml (8-252)
[2017-05-01] MEDS: METOPROLOL SUCCINATE XL 50 MG TABLET PO SCH (10:19)
[2017-05-01] MEDS: AMITRIPTYLINE 10 MG TABLET PO SCH (10:19)
[2017-05-01] MEDS: FAMOTIDINE 20 MG/2 ML VIAL IV SCH (10:22)
--- NOTE | 2017-05-01 11:10 | Gastrointestinal Progress Note ---
Assessment and Plan (1) Elevated liver enzymes Status: Acute Assessment and plan: 05/01-LFTs noted as below. Migraine resolved with no further nausea vomiting. Tolerating diet. Other lab values also noted as below. Patient feels she is ready for discharge home today. Okay to discharge from GI standpoint and follow up with Dr. Coughlin for routine check on her LFTs every 3-4 months. Plan an addendum to followed by Dr. Colbert. 04/30-admitted with intractable migraine with nausea and vomiting, history of gastroparesis with findings of elevated transaminases as well as CT findings of severe fatty liver infiltration. Hepatitis panel negative. lipid panel pending for tomorrow morning. Plan an addendum to follow by Dr. Colbert. Current Visit: Yes Gastroenterology - PN: Subj Interval history: CC: Elevated LFTs, fatty liver Patient seen awake and alert lying in bed. She states she is feeling much better today and that her migraine is now gone. Patient does admit that she did take her home medication regimen for her migraines last night and this did eradicate the headache. She has had no further nausea vomiting as well with this. Her LFTs are essentially unchanged with a mildly elevated AST. Triglycerides noted to be at 157 cholesterol 238. [place] screen is negative. Iron studies also noted with an iron of 106, TIBC 244, saturation 43, and ferritin at 338. She states her appetite has returned and she is tolerating regular diet at this time. Abdomen soft, nontender. ROS: Denies shortness of breath or chest pain Exam (Progress Note) - Constitutional Vitals: Period Temp Pulse Resp BP Sys/Mahmood Pulse Ox Last 24 Hr 97.0 F-99.1 F 64-94 18-20 84-144/51-85 90-96 - Other Additional findings: General appearance: no acute distress, over weight - Head Head exam: Present: normal inspection, normocephalic - Eye Eye exam: Present: other (Lids and conjunctivae are unremarkable). Absent: scleral icterus - ENT ENT exam: Present: normal exam, normal oropharynx - Neck Neck exam: Present: normal inspection - Respiratory Respiratory exam: Present: clear to auscultation bilaterally. Absent: rales, rhonchi, wheezes - Cardiovascular Cardiovascular exam: Present: regular rate and rhythm. Absent: diastolic murmur , JVD, systolic murmur - GI/Abdominal GI/Abdominal exam: Present: normal bowel sounds, soft. Absent: ascites, distended, mass, organomegaly, tenderness - Extremities Exam Extremities exam: Present: normal inspection, full ROM - Back Exam Back exam: Present: normal inspection - Neurological Exam Neurological exam: Present: alert, oriented X3 - Psychiatric Psychiatric exam: Present: normal affect, normal mood - Skin Skin exam: Present: normal color, warm, dry Results - Labs CBC & BMP: 05/01/17 06:02 05/01/17 06:02 Lab Results: I have reviewed the past 24 hour labs
--- NOTE | 2017-05-01 13:33 | Discharge Summary ---
Hospital Course - Hospital Course Hospital Course: 41 year old female with a history of HTN, migraine headaches who presented that presents with an intractable migraine. Patient had visited the ER previously about three times and has received various medications with no relief of symptoms. Upon this arrival,CT of her sinuses showed Developmental findings without acute paranasal sinus disease seen.She was admitted started onIVF, IV antiemetics and IV pain meds, anitemetics. Her Liver enzymes were elevated. Hepatitis panel- negative. CT showed Enlarged severely fatty liver.She also had intractable nausea and vomiting due to gastroparesis. GI was consulted, they recommended to continue the Prilosec and Urecholine for now and MiraLAX or milk of magnesia should be tried for her constipation.They also recommend hold Reglan due to its potential side effects.Triglycerides noted to be at 157 cholesterol 238. [place]RIA screen is negative. Iron studies also noted with an iron of 106, TIBC 244, saturation 43, and ferritin at 338. Her symptoms progressive improved. She wants to follow her Neurology as outpatient. Her vitals are stable. GI wants her to see Dr. Coughlin for routine check on her LFTs every 3-4 months. She will follow with her PCP in 1week. - Time spent with patient Time with patient DS: Greater than 30 minutes (Time spent greater than 35mins) Diagnosis - Discharge Diagnosis (1) Migraine headache Status: Acute (2) Hypertension Status: Acute (3) Elevated liver enzymes Status: Acute (4) Hyperglycemia Status: Acute (5) Gastroparesis Status: Chronic (6) Unspecified sleep apnea Status: Acute Discharge Plan - Discharge Data Disposition: Disch To Home/Self Care Condition at Discharge: Stable Activity: resume usual activities as tolerated - Discharge Medications New Polyethylene Glycol Powder [Miralax] 17 gm PO DAILY #7 pack Continue Omeprazole [Prilosec] 20 mg PO BID ALPRAZolam [Xanax] 0.25 mg PO BEDTIME Rizatriptan Benzoate [Maxalt] 10 mg PO ONCE PRN PRN Reason: Headache Diclofenac Potassium Tab [Cataflam] 50 mg PO ONCE PRN PRN Reason: Headache Metoprolol Succinate Xl [Toprol Xl] 50 mg PO BID Lysine 500 mg PO DAILY Docusate Sodium [Colace] 200 mg PO DAILY Mabel-3/Dha/Epa/Fish Oil [Fish Oil 1,000 mg Softgel] 3 each PO DAILY Margoechol Chloride [Urecholine] 50 mg PO DAILY Naratriptan HCl [Amerge] 2.5 mg PO DIRECTED PRN PRN Reason: Pain Amitriptyline [Elavil] 30 mg PO DAILY Multivit-Min/FA/Lycopen/Lutein [Centrum Silver Tablet] 1 each PO DAILY Discontinued Metoclopramide Tab [Reglan Tab] 10 mg PO DAILY - Follow Up or Referral - Forms/Instructions Additional Discharge Instructions: Follow with PCP in 1week. Follow with Dr. Coughlin for routine check on her LFTs every 3-4 months. Exam - Constitutional Vitals: Period Temp Pulse Resp BP Sys/Mahmood Pulse Ox Last 24 Hr 97.0 F-99.1 F 64-94 18-20 84-137/51-82 90-96 General appearance: no acute distress - Head Head exam: Present: normal inspection - Eye Eye exam: Present: EOMI - Respiratory Respiratory exam: Present: clear to auscultation bilaterally - Cardiovascular Cardiovascular exam: Present: regular rate and rhythm - GI/Abdominal GI/Abdominal exam: Present: normal bowel sounds - Extremities Exam Extremities exam: Present: normal inspection - Neurological Exam Neurological exam: Present: alert Discharge Results Procedures and tests throughout hospitalization: Pending Orders 04/29/17 19:18 Blood Culture Stat 04/30/17 07:59 Urinalysis Stat 05/01/17 06:02 Smooth Muscle Antibody IN AM 05/02/17 04:00 BMP [Basic Metabolic Panel] IN AM Comp Blood Count Auto Diff IN AM Labs on day of discharge: Labs from last 24 hours 05/01/17 05/01/17 05/01/17 11:39 06:12 06:03 WBC RBC Hgb Hct MCV MCH MCHC RDW Plt Count MPV Neut % (Auto) Lymph % (Auto) [place] % (Auto) Eos % (Auto) Baso % (Auto) Neut # (Auto) Lymph # (Auto) [place] # (Auto) Eos # (Auto) Baso # (Auto) Immature Gran % Nucleated RBC % Immature Gran # Nucleated RBCs # Immature Plt Fraction Sodium Potassium Chloride Carbon Dioxide Anion Gap BUN Creatinine GFR Calculation BUN/Creatinine Ratio Glucose POC Glucose 116 H 144 H Calculated Osmolality Calcium Iron TIBC % Saturation Ferritin Total Bilirubin AST ALT Alkaline Phosphatase Total Protein Albumin Globulin Albumin/Globulin Ratio Triglycerides Cholesterol LDL Cholesterol VLDL Cholesterol HDL Cholesterol Heart Disease Risk Ratio ANDRIA Screen Negative (<1:160) 05/01/17 05/01/17 05/01/17 06:02 06:02 06:02 WBC RBC Hgb Hct MCV MCH MCHC RDW Plt Count MPV Neut % (Auto) Lymph % (Auto) [place] % (Auto) Eos % (Auto) Baso % (Auto) Neut # (Auto) Lymph # (Auto) [place] # (Auto) Eos # (Auto) Baso # (Auto) Immature Gran % Nucleated RBC % Immature Gran # Nucleated RBCs # Immature Plt Fraction Sodium 140 Potassium 3.6 Chloride 105 Carbon Dioxide 29 Anion Gap 9.6 BUN 11 Creatinine 0.60 GFR Calculation 127 BUN/Creatinine Ratio 18.00 Glucose 133 H POC Glucose Calculated Osmolality 279.4 Calcium 8.4 L Iron 106 TIBC 244 L % Saturation 43.4 Ferritin 338.2 H Total Bilirubin 0.50 AST 79 H ALT 127 H Alkaline Phosphatase 78 Total Protein 6.1 L Albumin 3.4 Globulin 2.7 Albumin/Globulin Ratio 1.2 Triglycerides 157 H Cholesterol 238 H LDL Cholesterol 166.0 VLDL Cholesterol 31.4 HDL Cholesterol 46 Heart Disease Risk Ratio 5.17 [place]A Screen 05/01/17 05/01/17 05/01/17 06:02 06:02 00:39 WBC 9.4 RBC 3.71 L Hgb 11.8 L D Hct 35.2 L MCV 94.9 MCH 32 MCHC 33.5 RDW 12.4 Plt Count 279 MPV 9.7 Neut % (Auto) 49.2 Lymph % (Auto) 39.9 [place] % (Auto) 8.7 Eos % (Auto) 1.3 Baso % (Auto) 0.6 Neut # (Auto) 4.6 Lymph # (Auto) 3.7 [place] # (Auto) 0.8 Eos # (Auto) 0.1 Baso # (Auto) 0.1 Immature Gran % 0.3 Nucleated RBC % 0.0 Immature Gran # 0.03 Nucleated RBCs # 0.00 Immature Plt Fraction 0.0 Sodium 140 Potassium 3.5 Chloride 105 Carbon Dioxide 29 Anion Gap 9.5 BUN 11 Creatinine 0.60 GFR Calculation 127 BUN/Creatinine Ratio 18.00 Glucose 131 H POC Glucose 182 H Calculated Osmolality 279.4 Calcium 8.4 L Iron TIBC % Saturation Ferritin Total Bilirubin AST ALT Alkaline Phosphatase Total Protein Albumin Globulin Albumin/Globulin Ratio Triglycerides Cholesterol LDL Cholesterol VLDL Cholesterol HDL Cholesterol Heart Disease Risk Ratio [place]RIA Screen 04/30/17 18:14 WBC RBC Hgb Hct MCV MCH MCHC RDW Plt Count MPV Neut % (Auto) Lymph % (Auto) [place] % (Auto) Eos % (Auto) Baso % (Auto) Neut # (Auto) Lymph # (Auto) [place] # (Auto) Eos # (Auto) Baso # (Auto) Immature Gran % Nucleated RBC % Immature Gran # Nucleated RBCs # Immature Plt Fraction Sodium Potassium Chloride Carbon Dioxide Anion Gap BUN Creatinine GFR Calculation BUN/Creatinine Ratio Glucose POC Glucose 176 H Calculated Osmolality Calcium Iron TIBC % Saturation Ferritin Total Bilirubin AST ALT Alkaline Phosphatase Total Protein Albumin Globulin Albumin/Globulin Ratio Triglycerides Cholesterol LDL Cholesterol VLDL Cholesterol HDL Cholesterol Heart Disease Risk Ratio [place]RIA Screen Preliminary micro results at discharge 04/29/17 19:18 Blood Culture - Preliminary Blood No growth at 1 day 04/29/17 17:52 Blood Culture - Preliminary Blood No growth at 1 day DS: Provider Date of admission: 04/29/17 19:27 Primary care physician: Chad Coughlin, Attending physician on admission: Ella Arechiga MD Consults: 04/29/17 19:44 Consult to Pharmacy [CONS] Routine Reason for Pharmacy Consult: Other Comment: review prescribed med and home med for liver dys 04/29/17 20:32 Consult to Physician [CONS] Routine Comment: intractable migraine Consulting Provider: Vikash Duggan Person Notified: [email or web address] Date Notified: 04/30/17 Time Notified: 09:06 Consult to Sleep Center [CONS] Routine Reason for Sleep Center: Sleep Center Physician Consult Comment: meño, migraine 04/30/17 12:35 Consult to Physician [CONS] Routine Comment: Enlarged severely fatty liver. Consulting Provider: Chad Colbert Consult to Specialist Group: Gastroenterology When should Consulting Provider be notified: Now Person Notified: NIMO Date Notified: 04/30/17 Time Notified: 12:44 04/30/17 12:37 Consult to Diabetes Center, Educator [CONS] Routine Reason for [employer]: Diabetes Education Discharging clinician: Ella Arechiga MD
[2017-05-05 12:37] VITALS: BP 124/75
== END 2017-05-01 13:15 | disposition home or self-care (01) ==
LOC: N.EDINP 16:03 → N.ED 16:03 → N.EDINP 20:20
PROVIDERS: ADMIT Internal Medicine; ATTEND Internal Medicine